=== PATIENT | female | born 1990 | race Caucasian/White ===

== ENCOUNTER 2022-04-20 22:04 | Emergency (ER) | payer OTHER ==
[2022-04-20 22:23] VITALS: BP 123/77
[2022-04-21] MEDS ORDERED: ONDANSETRON 4 MG/2 ML VIAL IVP STA (06:39)
[2022-04-21] MEDS ORDERED: SODIUM CHLORIDE 0.9% 1,000 ML IV STA (06:39)
[2022-04-21] MEDS ORDERED: KETOROLAC 15 MG/ML 1 ML VIAL IVP STA (06:40)
--- NOTE | 2022-04-21 06:55 | ED ---
Fever HPI - General Chief Complaint: Fever Stated Complaint: cough Time Seen by Provider: 04/21/22 06:39 Source: patient, RN notes reviewed Mode of arrival: ambulatory - History of Present Illness Initial Comments: This is a 31-year-old female who presents to the emergency department for coughing, congestion, fevers, and vomiting. States that 4 days ago she tested positive for influenza A. Since then, most of her problems have been related to coughing and vomiting. States that she's been unable to keep anything down, which has been a problem for the fevers in particular, because she cannot keep down ibuprofen or Tylenol. She presents with her son today who has similar symptoms. Denies any difficulty breathing. Denies any chest pain, palpitations, abdominal pain, diarrhea, back pain, or headaches. MD Complaint: fever, other (cough, nausea, vomiting) Onset/Timin -: days(s) Context: sick contacts Treatments Prior to Arrival: none - Related Data Previous Rx's Medication Instructions Recorded HYDROcodone/APAP 5-325MG [[place] 1 tab PO Q6HR PRN #20 tab 10/15/15 5-325] HYDROcodone/APAP 5-325MG [[place] 1 each PO Q4HR PRN #20 tab 11/13/15 5-325] Ibuprofen [Motrin] 600 mg PO Q8HR PRN #30 tab 11/13/15 Albuterol Sulfate [Albuterol 1 puff PO Q4-6H PRN #8.5 gm 04/21/22 Sulfate Hfa] Ondansetron Odt [Zofran Odt] 4 mg PO Q8HR PRN #10 tab 04/21/22 Promethazine/Dextromethorphan 5 ml PO Q4-6H PRN #473 ml 04/21/22 [Promethazine-Dm Syrup] Allergies Allergy/AdvReac Type Severity Reaction Status Date / Time cyclobenzaprine HCl Allergy Nausea & Verified 04/20/22 22:23 [From Flexeril] Vomiting Review of Systems ROS Statement: Those systems with pertinent positive or pertinent negative responses have been documented in the HPI. ROS Other: All systems not noted in ROS Statement are negative. Past Medical History Past Medical History: Asthma History of Any Multi-Drug Resistant Organisms: None Reported Past Surgical History: Section, Cholecystectomy Past Anesthesia/Blood Transfusion Reactions: No Reported Reaction Past Psychological History: No Psychological Hx Reported Past Alcohol Use History: None Reported Past Drug Use History: None Reported General Exam General appearance: alert, in no apparent distress Head exam: Present: atraumatic, normocephalic, normal inspection Respiratory exam: Present: normal lung sounds bilaterally. Absent: respiratory distress, wheezes, rales, rhonchi, stridor Cardiovascular Exam: Present: regular rate, normal rhythm, normal heart sounds. Absent: systolic murmur, diastolic murmur, rubs, gallop, clicks GI/Abdominal exam: Present: soft, normal bowel sounds. Absent: distended, tenderness, guarding, rebound, rigid Neurological exam: Present: alert, oriented X3, CN II-XII intact Psychiatric exam: Present: normal affect, normal mood Skin exam: Present: warm, dry, intact, normal color. Absent: rash Course Vital Signs 04/20/22 04/21/22 04/21/22 22:21 07:29 07:32 Temperature 102.9 F H 99.6 F Pulse Rate 120 H 94 Respiratory 18 20 Rate Blood Pressure 123/77 O2 Sat by Pulse 96 94 L Oximetry 04/21/22 08:26 Temperature 99.6 F Pulse Rate 94 Respiratory 20 Rate Blood Pressure 123/77 O2 Sat by Pulse 94 L Oximetry Medical Decision Making - Medical Decision Making This is a 31-year-old female who presents to the emergency department for coughing, nausea, and vomiting. Was pt. sent in by a medical professional or institution? @ -No Did you speak to anyone other than the patient for history? @ -No Did you review nursing and triage notes? @ -Agree, accurate with regards to the patient's symptoms. Were old charts reviewed? @ -No Differential Diagnosis? @ -Differential Fever: Pneumonia, viral URI, endocarditis, myocarditis, pericarditis, otitis, sinusitis, peritonsillar Abscess, retropharyngeal Abscess, epiglottitis, peritonitis, appendicitis, [place] cystitis, diverticulitis, hepatitis, colitis, UTI, PID, TOA, pyelonephritis, prostatitis, epididymitis, meningitis, encephalitis, pulmonary embolism, CVA, thyroid storm, pancreatitis, adrenal crisis, cavernous sinus thrombosis, this is not meant to be an all-inclusive list. What testing was considered but not performed? (CT, X-rays, U/S, labs)? Why? @ -None What meds were considered but not given? Why? @ -None Did you discuss the management of the patient with other professionals? @ -No Did you reconcile home meds? @ -No Was smoking cessation discussed for >3mins.? @ -No Was critical care preformed (if so, how long)? @ -No Were there social determinants of health that impacted care today? How? (Homelessness, low income, unemployed, alcoholism, drug addiction, transportation, low edu. Level, literacy, decrease access to med. care, [facility], rehab)? @ -No Was there de-escalation of care discussed even if they declined? (Discuss DNR or withdrawal of care, Hospice)? @ -No What co-morbidities impacted this encounter? (DM, HTN, Smoking, COPD, CAD, Cancer, CVA, Hep., AIDS, mental health diagnosis, sleep apnea, morbid obesity)? @ -Asthma, morbid obesity Was patient admitted / discharged? @ -Discharged. Patient given IV fluids, Toradol, and Zofran. States that she felt much better after fluid and medication administration. The Toradol did successfully reduce her fever. She was also given a dose of Decadron. Prescriptions for promethazine DM cough syrup, albuterol inhaler, and Zofran provided with dosing instructions reviewed. She is instructed to remain well- hydrated, slowly advance her diet as tolerated, and get plenty of rest. Drug Therapy requiring intensive monitoring for toxicity (Heparin, Nitro, Insulin, Cardizem)? @ -None Were any procedures done? @ -None Diagnosis/symptom? @ -Influenza A Acute, or Chronic, or Acute on Chronic? @ -Acute Uncomplicated (without systemic symptoms) or Complicated (systemic symptoms)? @ -Complicated in that she is having associated nausea and vomiting. Side effects of treatment? @ -Adverse reaction to medications prescribed Exacerbation, Progression, or Severe Exacerbation] @ -Not applicable Poses a threat to life or bodily function? @ -May impact her function if she continues to feel sick. Diagnosis/symptom? @ -Nausea and vomiting Acute, or Chronic, or Acute on Chronic? @ -Acute Uncomplicated (without systemic symptoms) or Complicated (systemic symptoms)? @ -Uncomplicated Side effects of treatment? @ -Adverse reaction to Zofran Exacerbation, Progression, or Severe Exacerbation] @ -Not applicable Poses a threat to life or bodily function? @ -May impact bodily function if she continues to throw up. Return precautions reviewed in depth, the patient is instructed to return to the emergency department with any new, worsening, or concerning symptoms. Patient verbalized understanding. This case was discussed in detail with the attending ED physician. Presentation, findings, and treatment plan discussed in detail as well. Disposition Clinical Impression: Influenza A Disposition: HOME SELF-CARE Instructions (If sedation given, give patient instructions): Influenza (ED) Additional Instructions: Return to the emergency department with any new, worsening, or concerning symptoms. The cough medicine can be used every 4-6 hours as needed. This may make you sleepy and you should avoid taking it before driving. You can use the albuterol inhaler every 4-6 hours as needed for any coughing or difficulty breathing. The zofran can be used every 8 hours as needed if you develop any nausea. Follow up with your primary care provider in 1-2 days. Prescriptions: Albuterol Sulfate [Albuterol Sulfate Hfa] 1 puff PO Q4-6H PRN #8.5 gm PRN Reason: Shortness Of Breath Promethazine/Dextromethorphan [Promethazine-Dm Syrup] 5 ml PO Q4-6H PRN #473 ml PRN Reason: Cough Ondansetron Odt [Zofran Odt] 4 mg PO Q8HR PRN #10 tab PRN Reason: Nausea And Vomiting Is patient prescribed a controlled substance at d/c from ED?: No Referrals: Destiny Lopez DO [Primary Care Provider] - 1-2 days
[2022-04-21 07:30] VITALS: PULSE 94; RESP 20
[2022-04-21 07:32] VITALS: TEMP 99.6
[2022-04-21] MEDS ORDERED: DEXAMETHASONE SOD PHOSPHATE 10 MG/ML 1 ML VIAL IVP STA (08:07)
== END 2022-04-21 08:28 | disposition home or self-care (01) ==
LOC: EC 22:04
DX: J10.1 Influenza due to other identified influenza virus with other respiratory manifestations (principal); J45.909 Unspecified asthma, uncomplicated; Z79.899 Other long term (current) drug therapy; Z88.8 Allergy status to other drugs, medicaments and biological substances
CPT/HCPCS: 99283; 96374; 96375 ×2; 96361; J1100; J2405; J1885

== ENCOUNTER 2022-09-19 07:00 | Emergency (ER) | payer OTHER ==
[2022-09-19] MEDS ORDERED: IBUPROFEN 600 MG TAB PO STA (07:36)
[2022-09-19] MEDS ORDERED: ONDANSETRON ODT 4 MG TAB PO STA (07:37)
--- NOTE | 2022-09-19 07:41 | ED ---
General Adult HPI - General Chief complaint: Nausea/Vomiting/Diarrhea Stated complaint: sore throat Time Seen by Provider: 09/19/22 07:25 Source: patient, RN notes reviewed Mode of arrival: ambulatory Limitations: no limitations - History of Present Illness Initial comments: Nontoxic-appearing 31-year-old female presents ambulatory complaining of nausea and sore throat. Patient states she also has a sinus headache for the past 2 days, concerned for sinus infection. Denies any fevers. She denies any cough. No abdominal pain. States that she was exposed to coronavirus wishes to be tested. Patient states that she was treated along with her children for strep throat last month and finished course of amoxicillin. Patient also having her 2 children seen today for cough and congestion. Medical history of asthma. Denies chance of . -: days(s) (2) Location: head (Sinus), neck (Sore throat) Severity scale (1-10): 0 Quality: constant Consistency: constant Improves with: none Worsens with: none Associated Symptoms: headaches, nausea/vomiting, other (Sore throat) Treatments Prior to Arrival: none - Related Data Previous Rx's Medication Instructions Recorded HYDROcodone/APAP 5-325MG [[place] 1 tab PO Q6HR PRN #20 tab 10/15/15 5-325] HYDROcodone/APAP 5-325MG [[place] 1 each PO Q4HR PRN #20 tab 11/13/15 5-325] Ibuprofen [Motrin] 600 mg PO Q8HR PRN #30 tab 11/13/15 Albuterol Sulfate [Albuterol 1 puff PO Q4-6H PRN #8.5 gm 04/21/22 Sulfate Hfa] Ondansetron Odt [Zofran Odt] 4 mg PO Q8HR PRN #10 tab 04/21/22 Promethazine/Dextromethorphan 5 ml PO Q4-6H PRN #473 ml 04/21/22 [Promethazine-Dm Syrup] Allergies Allergy/AdvReac Type Severity Reaction Status Date / Time cyclobenzaprine HCl Allergy Nausea & Verified 09/19/22 07:10 [From Flexeril] Vomiting Patient : No Review of Systems ROS Statement: Those systems with pertinent positive or pertinent negative responses have been documented in the HPI. ROS Other: All systems not noted in ROS Statement are negative. Past Medical History Past Medical History: Asthma History of Any Multi-Drug Resistant Organisms: None Reported Past Surgical History: Section, Cholecystectomy Past Anesthesia/Blood Transfusion Reactions: No Reported Reaction Past Psychological History: No Psychological Hx Reported Smoking Status: Never smoker Past Alcohol Use History: None Reported Past Drug Use History: None Reported General Exam Limitations: no limitations General appearance: alert, in no apparent distress Head exam: Present: atraumatic Eye exam: Present: normal appearance. Absent: scleral icterus, conjunctival injection, periorbital swelling ENT exam: Present: mucous membranes moist Neck exam: Present: full ROM. Absent: tenderness, meningismus Respiratory exam: Present: normal lung sounds bilaterally. Absent: respiratory distress, accessory muscle use Cardiovascular Exam: Present: regular rate GI/Abdominal exam: Present: soft Extremities exam: Present: normal capillary refill Neurological exam: Present: alert, oriented X3, normal gait Psychiatric exam: Present: normal affect, normal mood Skin exam: Present: warm, dry, normal color. Absent: cyanosis, diaphoretic, petechiae, pallor Course Vital Signs 09/19/22 09/19/22 07:08 08:52 Temperature 97.9 F 98.1 F Pulse Rate 78 92 Respiratory 18 20 Rate Blood Pressure 136/83 125/82 O2 Sat by Pulse 99 94 L Oximetry - Reevaluation(s) Reevaluation #1: 09/19/22 08:21 Nausea resolved with Zofran. Time: 08:15 Medical Decision Making - Medical Decision Making Was pt. sent in by a medical professional or institution (, PA, SERVICE CENTER REPRESENTATIVE, urgent care, hospital, or skilled nursing...) When possible be specific @ -No Did you speak to anyone other than the patient for history (EMS, parent, family, police, friend...)? What history was obtained from this source @ -No Did you review nursing and triage notes (agree or disagree)? Why? @ -I reviewed and agree with nursing and triage notes Were old charts reviewed (outside hosp., previous admission, EMS record, old EKG, old radiological studies, urgent care reports/EKG's, skilled nursing records)? Report findings @ -No old charts were reviewed Differential Diagnosis (chest pain, altered mental status, abdominal pain women, abdominal pain men, vaginal bleeding, weakness, fever, dyspnea, syncope, headache, dizziness, GI bleed, back pain, seizure, CVA, palpatations, mental health, musculoskeletal)? @ -Sinusitis, URI, migraine EKG interpreted by me (3pts min.). @ -n/a X-rays interpreted by me (1pt min.). @ -None done CT interpreted by me (1pt min.). @ -None done U/S interpreted by me (1pt. min.). @ -None done What testing was considered but not performed or refused? (CT, X-rays, U/S, labs)? Why? @ -None What meds were considered but not given or refused? Why? @ -None Did you discuss the management of the patient with other professionals (professionals i.e. , PA, SERVICE CENTER REPRESENTATIVE, lab, RT, psych nurse, child protective services social worker, kiln car repairer, teacher, ambulance officer, bilingual case manager)? Give summary @ -No Was smoking cessation discussed for >3mins.? @ -No Was critical care preformed (if so, how long)? @ -No Were there social determinants of health that impacted care today? How? (Homelessness, low income, unemployed, alcoholism, drug addiction, transportation, low edu. Level, literacy, decrease access to med. care, half-way, rehab)? @ -No Was there de-escalation of care discussed even if they declined (Discuss DNR or withdrawal of care, Hospice)? DNR status @ -No What co-morbidities impacted this encounter? (DM, HTN, Smoking, COPD, CAD, Cancer, CVA, ARF, Chemo, Hep., AIDS, mental health diagnosis, sleep apnea, morbid obesity)? @ -Asthma, obesity Was patient admitted / discharged? Hospital course, mention meds given and route, prescriptions, significant lab abnormalities, going to OR and other pertinent info. @ -Discharged. Nontoxic-appearing 31-year-old female presents ambulatory with her 2 children all complaining of nausea and sore throat. Mom states she also has a sinus headache for the past 2 days. Denies any fevers. She denies any cough. States that she was exposed to coronavirus wishes to be tested. Medical history of asthma. Physical exam lungs sounds clear to auscultation. Patient has no cough. No chest pain or difficulty in breathing. Abdomen is soft. Vital signs are stable and she is afebrile. Patient concerned for exposure to coronavirus, coronavirus testing is negative. This is likely a upper respiratory viral infection as patient and her 2 children have similar symptoms. She denies any fevers. Directed to use decongestant [id number] for her sinus pressure and Tylenol Motrin for pain. Follow-up with the primary care doctor next week. She is agreeable to this plan of care. Case discussed with Dr. Rolle Undiagnosed new problem with uncertain prognosis? @ -No Drug Therapy requiring intensive monitoring for toxicity (Heparin, Nitro, Insulin, Cardizem)? @ -No Were any procedures done? @ -No Diagnosis/symptom? @ -Upper respiratory infection Acute, or Chronic, or Acute on Chronic? @ -Acute Uncomplicated (without systemic symptoms) or Complicated (systemic symptoms)? @ -Uncomplicated Side effects of treatment? @ -No Exacerbation, Progression, or Severe Exacerbation? @ -No Poses a threat to life or bodily function? How? (Chest pain, [place], [place], pneumonia, PE, COPD, DKA, ARF, appy, cholecystitis, CVA, Diverticulitis, Homicidal, Suicidal, threat to staff... and all critical care pts) @ -No - Lab Data Lab Results 09/19/22 Range/Units 07:37 Coronavirus (PCR) Not Detected (Not Detectd) Disposition Clinical Impression: URI (upper respiratory infection) Disposition: HOME SELF-CARE Condition: Good Instructions (If sedation given, give patient instructions): Upper Respiratory Infection (ED) Additional Instructions: You can take Tylenol and/or Motrin as needed for any pain or discomfort. Use [id number] decongestants for your sinus pressure and congestion. Benadryl is a decongestant and will also relieve nausea. Follow-up with the primary care doctor next week. Return to the emergency room with any new or concerning symptoms. Is patient prescribed a controlled substance at d/c from ED?: No Referrals: Destiny Lopez DO [Primary Care Provider] - 1-2 days Time of Disposition: 08:13
[2022-09-19] MEDS ORDERED: ONDANSETRON 4 MG ODT STARTER PACK 2 TAB BTL PO STA (08:37)
[2022-09-19 08:53] VITALS: BP 125/82; PULSE 92; RESP 20; TEMP 98.1
== END 2022-09-19 08:53 | disposition home or self-care (01) ==
LOC: EC 07:00
DX: J06.9 Acute upper respiratory infection, unspecified (principal); J45.909 Unspecified asthma, uncomplicated; Z88.8 Allergy status to other drugs, medicaments and biological substances; Z20.822 Contact with and (suspected) exposure to COVID-19
CPT/HCPCS: 87635; 99284

== ENCOUNTER 2023-02-25 08:37 | Emergency (ER) | payer OTHER ==
--- NOTE | 2023-02-25 09:12 | ED ---
General Adult HPI - General Chief complaint: Upper Respiratory Infection Stated complaint: Cough Time Seen by Provider: 02/25/23 08:37 Source: patient, RN notes reviewed, old records reviewed Mode of arrival: ambulatory Limitations: no limitations - History of Present Illness Initial comments: Patient is a 32-year-old female presents emergency Department complaining of upper respiratory infection. Patient has had a cough for 1 week and is not getting any better. His remote history of asthma but not currently therapy for asthma. No fevers. Similar complaints in her children. No nausea or vomiting or diarrhea. Endorses rhinorrhea. Denies sore throat. Presents for further evaluation of this time. Was seen at another ER urgent care and no testing was done and was diagnosed with bronchitis earlier this week. Presents for further evaluation. - Related Data Previous Rx's Medication Instructions Recorded HYDROcodone/APAP 5-325MG [[place] 1 tab PO Q6HR PRN #20 tab 10/15/15 5-325] HYDROcodone/APAP 5-325MG [[place] 1 each PO Q4HR PRN #20 tab 11/13/15 5-325] Ibuprofen [Motrin] 600 mg PO Q8HR PRN #30 tab 11/13/15 Albuterol Sulfate [Albuterol 1 puff PO Q4-6H PRN #8.5 gm 04/21/22 Sulfate Hfa] Ondansetron Odt [Zofran Odt] 4 mg PO Q8HR PRN #10 tab 04/21/22 Promethazine/Dextromethorphan 5 ml PO Q4-6H PRN #473 ml 04/21/22 [Promethazine-Dm Syrup] Azithromycin [Zithromax] 250 mg PO DAILY 4 Days #4 tab 02/25/23 Allergies Allergy/AdvReac Type Severity Reaction Status Date / Time cyclobenzaprine HCl Allergy Nausea & Verified 02/25/23 08:40 [From Flexeril] Vomiting Review of Systems ROS Statement: Those systems with pertinent positive or pertinent negative responses have been documented in the HPI. Review of Systems: CONST: Denies fever EYES: Denies blurry vision ENT: Endorses nasal congestion C/V: Denies Chest pain RESP: Denies shortness of breath GI: Denies abdominal pain : Denies dysuria SKIN: Denies rash. MSK: Denies joint pain. NEURO: Denies headache ROS Other: All systems not noted in ROS Statement are negative. Past Medical History Past Medical History: Asthma History of Any Multi-Drug Resistant Organisms: None Reported Past Surgical History: Section, Cholecystectomy Past Anesthesia/Blood Transfusion Reactions: No Reported Reaction Past Psychological History: No Psychological Hx Reported Smoking Status: Never smoker Past Alcohol Use History: None Reported Past Drug Use History: None Reported General Exam - General Exam Comments Initial Comments: General: Appears in no acute distress. HEAD: Normal with no signs of head trauma. EYES: PERRLA, EOMI, conjunctiva normal, no discharge. ENT: Hearing grossly intact, normal oropharynx. RESPIRATORY: Clear breath sounds bilaterally. Mild central coarse breath sounds C/V: Regular rate and rhythm. S1 and S2 auscultated, peripheral pulses 2+ and intact throughout ABD: Abd is soft, nontender, nondistended EXT: no obvious deformity SKIN: No rashes or lesions observed on exposed skin. NEURO: Alert and oriented x 4. Limitations: no limitations Course Vital Signs 02/25/23 02/25/23 02/25/23 08:39 09:32 11:07 Temperature 98.2 F 98.1 F Pulse Rate 90 88 Respiratory 20 18 18 Rate Blood Pressure 144/89 132/79 O2 Sat by Pulse 99 99 Oximetry Medical Decision Making - Medical Decision Making Was pt. sent in by a medical professional or institution (ISABELLA Murry, TRACK MAINTAINER, urgent care, hospital, or long-term...) When possible be specific @ -No Did you speak to anyone other than the patient for history (EMS, parent, family, police, friend...)? What history was obtained from this source @ -No Did you review nursing and triage notes (agree or disagree)? Why? @ -I reviewed and agree with nursing and triage notes Were old charts reviewed (outside hosp., previous admission, EMS record, old EKG, old radiological studies, urgent care reports/EKG's, long-term records)? Report findings @ -No old charts were reviewed Differential Diagnosis (chest pain, altered mental status, abdominal pain women, abdominal pain men, vaginal bleeding, weakness, fever, dyspnea, syncope, headache, dizziness, GI bleed, back pain, seizure, CVA, palpatations, mental health, musculoskeletal)? @ -Bronchitis, pneumonia, viral infection, flu, Covid infection. This list is not all-inclusive. EKG interpreted by me (3pts min.). @ -None done X-rays interpreted by me (1pt min.). @ -Chest x-ray reveals no obvious acute cardiopulmonary process. CT interpreted by me (1pt min.). @ -None done U/S interpreted by me (1pt. min.). @ -None done What testing was considered but not performed or refused? (CT, X-rays, U/S, labs)? Why? @ -None What meds were considered but not given or refused? Why? @ -None Did you discuss the management of the patient with other professionals (professionals i.e. , PA, TRACK MAINTAINER, lab, RT, psych nurse, social media editor, credit analysis manager, teacher, debt recovery officer, welfare case worker)? Give summary @ -No Was smoking cessation discussed for >3mins.? @ -No Was critical care preformed (if so, how long)? @ -No Were there social determinants of health that impacted care today? How? (Homelessness, low income, unemployed, alcoholism, drug addiction, transportation, low edu. Level, literacy, decrease access to med. care, custodial, rehab)? @ -No Was there de-escalation of care discussed even if they declined (Discuss DNR or withdrawal of care, Hospice)? DNR status @ -No What co-morbidities impacted this encounter? (DM, HTN, Smoking, COPD, CAD, Cancer, CVA, ARF, Chemo, Hep., AIDS, mental health diagnosis, sleep apnea, morbid obesity)? @ -None Was patient admitted / discharged? Hospital course, mention meds given and route, prescriptions, significant lab abnormalities, going to OR and other pertinent info. @ -Based on the patient's presentation and physical exam, I'm concerned for upper respiratory infection for the patient. We will obtain chest x-ray and viral swabs. Vital signs within acceptable limits. Patient was in agreement this plan. Chest x-ray is unremarkable. Viral swabs negative. Discuss results with the patient. She expressed understanding. Discussed antibiotics and she did ask for them. We will provide her with a Z-Evangelist. She will also receive a dose of Decadron. She was in agreement this plan. Strict return precautions discussed. I will provide the patient with a prescription for azithromycin. I instructed the patient to follow up with their PCP in the next 1-3 days. I explained that the patient should return to the emergency department if they experience any worsening symptoms. Strict return precautions were discussed with the patient. The patient expressed understanding of these instructions. I answered all questions that the patient had. The patient was discharged home in good condition with their prescriptions and follow up information. Undiagnosed new problem with uncertain prognosis? @ -No Drug Therapy requiring intensive monitoring for toxicity (Heparin, Nitro, Insulin, Cardizem)? @ -No Were any procedures done? @ -No Diagnosis/symptom? @ -TracheoBronchitis, URI Acute, or Chronic, or Acute on Chronic? @ -Acute Uncomplicated (without systemic symptoms) or Complicated (systemic symptoms)? @ -Uncomplicated Side effects of treatment? @ -none Exacerbation, Progression, or Severe Exacerbation] @ -no Poses a threat to life or bodily function? @ -no - Lab Data Lab Results 02/25/23 Range/Units 09:18 Influenza Type A (PCR) Not Detected (Not Detectd) Influenza Type B (PCR) Not Detected (Not Detectd) RSV (PCR) Not Detected (Not Detectd) SARS-CoV-2 (PCR) Not Detected (Not Detectd) Disposition Clinical Impression: Tracheobronchitis, Upper respiratory tract infection Disposition: HOME SELF-CARE Condition: Good Instructions (If sedation given, give patient instructions): Upper Respiratory Infection (ED) Prescriptions: Azithromycin [Zithromax] 250 mg PO DAILY 4 Days #4 tab Is patient prescribed a controlled substance at d/c from ED?: No Referrals: Destiny Lopez DO [Primary Care Provider] - 1-2 days Time of Disposition: 10:20
--- NOTE | 2023-02-25 09:41 | XR ---
EXAMINATION TYPE: XR chest 2V DATE OF EXAM: 02/25/2023 COMPARISON: None HISTORY: 32-year-old female with cough TECHNIQUE: PA and lateral views FINDINGS: Heart normal size. Aorta and pulmonary vasculature within normal limits. No consolidation or pleural effusion. Large patient body habitus. IMPRESSION: No acute cardiopulmonary process.
[2023-02-25 10:15] VITALS: RESP 18
[2023-02-25] MEDS ORDERED: AZITHROMYCIN 500 MG TAB PO STA (10:40)
[2023-02-25] MEDS ORDERED: dexAMETHasone 4 MG TAB PO STA (10:41)
[2023-02-25 11:27] VITALS: BP 132/79; PULSE 88; TEMP 98.1
== END 2023-02-25 11:09 | disposition home or self-care (01) ==
LOC: EC 08:37
DX: J40 Bronchitis, not specified as acute or chronic (principal); J06.9 Acute upper respiratory infection, unspecified; Z88.8 Allergy status to other drugs, medicaments and biological substances; Z20.822 Contact with and (suspected) exposure to COVID-19; Z90.49 Acquired absence of other specified parts of digestive tract
CPT/HCPCS: 87636; 71046; 99283; J8540

== ENCOUNTER 2023-07-08 22:09 | Emergency (ER) | payer OTHER ==
[2023-07-08 22:14] VITALS: BP 178/109; PULSE 108; RESP 18; TEMP 98
--- NOTE | 2023-07-08 22:23 | ED ---
ENT HPI - General Chief complaint: Dental/Oral Stated complaint: Toothache Time Seen by Provider: 07/08/23 22:13 Source: patient Mode of arrival: ambulatory Limitations: no limitations - History of Present Illness Initial comments: 32-year-old female presenting with chief complaint of left-sided dental pain. Pain started today. This is over a tooth to the left upper side that has a known cavity. Patient has a dentist, states that she needs to make an appointment. She was just started on new medication for anxiety and was not sure if she can take Motrin or Tylenol with this medication. She is having no difficulty breathing or swallowing. No trismus. No drooling. No muffled voice. No fevers or neck pain. - Related Data Previous Rx's Medication Instructions Recorded HYDROcodone/APAP 5-325MG [[place] 1 tab PO Q6HR PRN #20 tab 10/15/15 5-325] HYDROcodone/APAP 5-325MG [[place] 1 each PO Q4HR PRN #20 tab 11/13/15 5-325] Ibuprofen [Motrin] 600 mg PO Q8HR PRN #30 tab 11/13/15 Albuterol Sulfate [Albuterol 1 puff PO Q4-6H PRN #8.5 gm 04/21/22 Sulfate Hfa] Ondansetron Odt [Zofran Odt] 4 mg PO Q8HR PRN #10 tab 04/21/22 Promethazine/Dextromethorphan 5 ml PO Q4-6H PRN #473 ml 04/21/22 [Promethazine-Dm Syrup] Azithromycin [Zithromax] 250 mg PO DAILY 4 Days #4 tab 02/25/23 Amoxic-Pot Clav 875-125Mg 1 tab PO Q12HR 7 Days #14 tab 07/08/23 [Augmentin 875-125] Allergies Allergy/AdvReac Type Severity Reaction Status Date / Time cyclobenzaprine HCl Allergy Nausea & Verified 07/08/23 22:12 [From Flexeril] Vomiting Review of Systems ROS Statement: Those systems with pertinent positive or pertinent negative responses have been documented in the HPI. ROS Other: All systems not noted in ROS Statement are negative. Past Medical History Past Medical History: Asthma History of Any Multi-Drug Resistant Organisms: None Reported Past Surgical History: Section, Cholecystectomy Past Anesthesia/Blood Transfusion Reactions: No Reported Reaction Past Psychological History: Anxiety Smoking Status: Never smoker Past Alcohol Use History: None Reported Past Drug Use History: None Reported General Exam Limitations: no limitations General appearance: alert, in no apparent distress Head exam: Present: atraumatic, normocephalic Eye exam: Present: normal appearance Expanded Mouth exam: Present: normal external inspection, tongue normal. Absent: drooling, trismus, muffled voice Teeth exam: Present: dental caries, dental tenderness #. Absent: gingival enlargement Throat exam: normal inspection Neck exam: Present: normal inspection Respiratory exam: Absent: respiratory distress Neurological exam: Present: alert, oriented X3 Psychiatric exam: Present: normal affect, normal mood Skin exam: Present: warm, dry Course Vital Signs 07/08/23 22:10 Temperature 98 F Pulse Rate 108 H Respiratory 18 Rate Blood Pressure 178/109 O2 Sat by Pulse 98 Oximetry Medical Decision Making - Medical Decision Making Was pt. sent in by a medical professional or institution (, PA, BUILD MANAGER, urgent care, hospital, or intermediate...) When possible be specific @ -No Did you speak to anyone other than the patient for history (EMS, parent, family, police, friend...)? What history was obtained from this source @ -No Did you review nursing and triage notes (agree or disagree)? Why? @ -I reviewed and agree with nursing and triage notes Were old charts reviewed (outside hosp., previous admission, EMS record, old EKG, old radiological studies, urgent care reports/EKG's, intermediate records)? Report findings @ -No old charts were reviewed Differential Diagnosis (chest pain, altered mental status, abdominal pain women, abdominal pain men, vaginal bleeding, weakness, fever, dyspnea, syncope, headache, dizziness, GI bleed, back pain, seizure, CVA, palpatations, mental health, musculoskeletal)? @ -Differential includes toothache, dental abscess, Aguila's angina, this is not an all-inclusive list EKG interpreted by me (3pts min.). @ -As above X-rays interpreted by me (1pt min.). @ -None done CT interpreted by me (1pt min.). @ -None done U/S interpreted by me (1pt. min.). @ -None done What testing was considered but not performed or refused? (CT, X-rays, U/S, labs)? Why? @ -None What meds were considered but not given or refused? Why? @ -None Did you discuss the management of the patient with other professionals (professionals i.e. , PA, BUILD MANAGER, lab, RT, psych nurse, social services specialist, technology administrator, teacher, hospital chief executive officer, telephonic nurse case manager)? Give summary @ -No Was smoking cessation discussed for >3mins.? @ -No Was critical care preformed (if so, how long)? @ -No Were there social determinants of health that impacted care today? How? (Homelessness, low income, unemployed, alcoholism, drug addiction, t ransportation, low edu. Level, literacy, decrease access to med. care, group home, rehab)? @ -No Was there de-escalation of care discussed even if they declined (Discuss DNR or withdrawal of care, Hospice)? DNR status @ -No What co-morbidities impacted this encounter? (DM, HTN, Smoking, COPD, CAD, Cancer, CVA, ARF, Chemo, Hep., AIDS, mental health diagnosis, sleep apnea, morbid obesity)? @ -None Was patient admitted / discharged? Hospital course, mention meds given and route, prescriptions, significant lab abnormalities, going to OR and other pertinent info. @ -32-year-old female presenting with chief complaint of dental pain. Pain started suddenly today over a tooth with a known cavity to the left upper side. On physical exam there is no trismus or brawny induration. Normal posterior pha rynx. There is a noted dental carry. There is some swelling noted to the left upper jaw. No evidence of drainable abscess. She is started on Augmentin. Instructed to take Motrin and Tylenol as needed. Instructed to follow-up with dentist, provided with referral to community dental clinic. Discharged home. Follow-up with PCP. Report back to ER with any new or worsening symptoms. Discussed return parameters and answered all questions. Patient conveyed verbal understanding and agreed to the plan. I discussed this case in detail with my attending Dr. Rede Undiagnosed new problem with uncertain prognosis? @ -No Drug Therapy requiring intensive monitoring for toxicity (Heparin, Nitro, Insulin, Cardizem)? @ -No Were any procedures done? @ -No Diagnosis/symptom? @ -Dental abscess Acute, or Chronic, or Acute on Chronic? @ -Acute Uncomplicated (without systemic symptoms) or Complicated (systemic symptoms)? @ -Uncomplicated Side effects of treatment? @ -No Exacerbation, Progression, or Severe Exacerbation? @ -No Poses a threat to life or bodily function? How? (Chest pain, [place], [place], pneumonia, PE, COPD, DKA, ARF, appy, cholecystitis, CVA, Diverticulitis, Homicidal, Suicidal, threat to staff... and all critical care pts) @ -No Disposition Clinical Impression: Dental abscess Disposition: HOME SELF-CARE Condition: Good Instructions (If sedation given, give patient instructions): Dental Abscess (ED) Additional Instructions: Please follow up with the [facility] dental [facility]. [facility] [place] [address]. Phone number for new patients or [phone] for existing patients. Prescriptions: Amoxic-Pot Clav 875-125Mg [Augmentin 875-125] 1 tab PO Q12HR 7 Days #14 tab Is patient prescribed a controlled substance at d/c from ED?: No Referrals: Destiny Lopez DO [Primary Care Provider] - 1-2 days Time of Disposition: 22:21
[2023-07-08] MEDS: AMOXIC-POT CLAV 875MG STARTER PACK 2 TAB BTL PO STA (22:28)
[2023-07-08] MEDS: IBUPROFEN 600 MG TAB PO STA (22:28)
[2023-07-08] MEDS: ACETAMINOPHEN TAB 325 MG TAB PO STA (22:29)
== END 2023-07-08 22:33 | disposition home or self-care (01) ==
LOC: EC 22:09
DX: K04.7 Periapical abscess without sinus (principal); K02.9 Dental caries, unspecified; J45.909 Unspecified asthma, uncomplicated; Z88.8 Allergy status to other drugs, medicaments and biological substances; Z90.49 Acquired absence of other specified parts of digestive tract
CPT/HCPCS: 99283

== ENCOUNTER 2023-12-24 00:27 | Emergency (ER) | payer OTHER ==
--- NOTE | 2023-12-24 01:07 | ED ---
URI HPI - General Chief Complaint: Upper Respiratory Infection Stated Complaint: covid Time Seen by Provider: 12/24/23 00:43 Source: patient, RN notes reviewed Mode of arrival: ambulatory Limitations: no limitations - History of Present Illness Initial Comments: This is a 33-year-old female who presents to the emergency department for headaches, body aches, nausea, with vomiting. States that it started 2 days ago. She took an at home COVID test that was positive. Last took medication for her headache and fever 6 hours ago, states that the nausea is making it difficult for her to take additional medication. Denies any coughing, chest pain, or shortness of breath. - Related Data Previous Rx's Medication Instructions Recorded HYDROcodone/APAP 5-325MG [[place] 1 tab PO Q6HR PRN #20 tab 10/15/15 5-325] HYDROcodone/APAP 5-325MG [[place] 1 each PO Q4HR PRN #20 tab 11/13/15 5-325] Ibuprofen [Motrin] 600 mg PO Q8HR PRN #30 tab 11/13/15 Albuterol Sulfate [Albuterol 1 puff PO Q4-6H PRN #8.5 gm 04/21/22 Sulfate Hfa] Ondansetron Odt [Zofran Odt] 4 mg PO Q8HR PRN #10 tab 04/21/22 Promethazine/Dextromethorphan 5 ml PO Q4-6H PRN #473 ml 04/21/22 [Promethazine-Dm Syrup] Azithromycin [Zithromax] 250 mg PO DAILY 4 Days #4 tab 02/25/23 Amoxic-Pot Clav 875-125Mg 1 tab PO Q12HR 7 Days #14 tab 07/08/23 [Augmentin 875-125] Ketorolac [Toradol] 10 mg PO Q6HR PRN #15 tab 12/24/23 Nirmatrelvir/Ritonavir [Paxlovid 1 pack PO BID 5 Days #30 tab 12/24/23 300-100 mg Dose Pack] Ondansetron Odt [Zofran Odt] 4 mg PO Q8HR PRN #15 tab 12/24/23 Allergies Allergy/AdvReac Type Severity Reaction Status Date / Time cyclobenzaprine HCl Allergy Nausea & Verified 07/08/23 22:12 [From Flexeril] Vomiting Review of Systems ROS Statement: Those systems with pertinent positive or pertinent negative responses have been documented in the HPI. ROS Other: All systems not noted in ROS Statement are negative. Past Medical History Past Medical History: Asthma History of Any Multi-Drug Resistant Organisms: None Reported Past Surgical History: Section, Cholecystectomy Past Anesthesia/Blood Transfusion Reactions: No Reported Reaction Past Psychological History: Anxiety Smoking Status: Never smoker Past Alcohol Use History: None Reported Past Drug Use History: None Reported General Exam Limitations: no limitations General appearance: alert, in no apparent distress Head exam: Present: atraumatic, normocephalic, normal inspection Respiratory exam: Present: normal lung sounds bilaterally. Absent: respiratory distress, wheezes, rales, rhonchi, stridor Cardiovascular Exam: Present: regular rate, normal rhythm, normal heart sounds. Absent: systolic murmur, diastolic murmur, rubs, gallop, clicks Neurological exam: Present: alert, oriented X3, CN II-XII intact Psychiatric exam: Present: normal affect, normal mood Skin exam: Present: warm, dry, intact, normal color. Absent: rash Course Vital Signs 12/24/23 12/24/23 00:29 01:36 Temperature 100 F H 99.2 F Pulse Rate 112 H 76 Respiratory 16 20 Rate Blood Pressure 135/82 128/76 O2 Sat by Pulse 98 95 Oximetry Medical Decision Making - Medical Decision Making This is a 33 year old female who presents to the emergency department for headaches, body aches, and nausea from COVID. Was pt. sent in by a medical professional or institution? @ -No Did you speak to anyone other than the patient for history? @ -No Did you review nursing and triage notes? @ -Yes, and I agree, it is accurate with regards to the patient's symptoms. Were old charts reviewed? @ -No Differential Diagnosis? @ -Differential Headache: Migraine, tension, cluster, carbon monoxide, central venous thrombosis, pension karma temporal arteritis, acute closure glaucoma, intercranial hemorrhage, mastoiditis, sinusitis, head injury, this is not meant to be an all-inclusive list. EKG interpreted by me (3pts min.)? @ -Not obtained X-rays interpreted by me (1pt min.)? @ -Not obtained CT interpreted by me (1pt min.)? @ -Not obtained U/S interpreted by me (1pt. min.)? @ -Not obtained What testing was considered but not performed? (CT, X-rays, U/S, labs)? Why? @ -None What meds were considered but not given? Why? @ -None Did you discuss the management of the patient with other professionals? @ -No Did you reconcile home meds? @ -No Was smoking cessation discussed for >3mins.? @ -No Was critical care preformed (if so, how long)? @ -No Were there social determinants of health that impacted care today? How? (Homelessness, low income, unemployed, alcoholism, drug addiction, transportation, low edu. Level, literacy, decrease access to med. care, alf, rehab)? @ -No Was there de-escalation of care discussed even if they declined? (Discuss DNR or withdrawal of care, Hospice)? @ -No What co-morbidities impacted this encounter? (DM, HTN, Smoking, COPD, CAD, Cancer, CVA, Hep., AIDS, mental health diagnosis, sleep apnea, morbid obesity)? @ -Asthma Was patient admitted / discharged? @ -Discharged. Toradol and Zofran administered in the emergency department. Discussed the option of Paxlovid with the patient and she requested to proceed. This was prescribed as well as Toradol and Zofran for further symptomatic management. Advised getting plenty of rest and drinking plenty of fluids. Patient discharged home in stable condition. Case discussed with ED attending Dr. Jimenez. Return precautions reviewed in depth, the patient is instructed to return to the emergency department with any new, worsening, or concerning symptoms. Patient verbalized understanding. Undiagnosed new problem with uncertain prognosis? @ -None Drug Therapy requiring intensive monitoring for toxicity (Heparin, Nitro, Insulin, Cardizem)? @ -None Were any procedures done? @ -None Diagnosis/symptom? @ -COVID-19 Acute, or Chronic, or Acute on Chronic? @ -Acute Uncomplicated (without systemic symptoms) or Complicated (systemic symptoms)? @ -Uncomplicated Side effects of treatment? @ -None Exacerbation, Progression, or Severe Exacerbation] @ -Not applicable Poses a threat to life or bodily function? @ -No Disposition Clinical Impression: COVID-19 Disposition: HOME SELF-CARE Instructions (If sedation given, give patient instructions): COVID-19 (Coronavirus Disease 2019) (ED), How to Recover from COVID-19 at Home (ED) Additional Instructions: Return to the emergency department with any new, worsening, or concerning symptoms. Take the Paxlovid as prescribed for 5 days. Take the Toradol with Tylenol as needed for fevers and pain relief. If you choose to take the Toradol, do not take any other anti-inflammatories such as ibuprofen, take one or the other. You can take the Zofran up to every 8 hours as needed for nausea and vomiting. Make sure you get plenty of rest and remain well-hydrated. Prescriptions: Nirmatrelvir/Ritonavir [Paxlovid 300-100 mg Dose Pack] 1 pack PO BID 5 Days #30 tab Ketorolac [Toradol] 10 mg PO Q6HR PRN #15 tab PRN Reason: Pain Ondansetron Odt [Zofran Odt] 4 mg PO Q8HR PRN #15 tab PRN Reason: Nausea And Vomiting Is patient prescribed a controlled substance at d/c from ED?: No Referrals: Destiny Lopez DO [Primary Care Provider] - 1-2 days
[2023-12-24] MEDS: ACET/COD 300 MG/30 MG STARTER PACK 6 TAB BTL PO STA (01:13)
[2023-12-24] MEDS: ONDANSETRON 4 MG ODT STARTER PACK 2 TAB BTL PO STA (01:13)
[2023-12-24] MEDS: ONDANSETRON 4 MG/2 ML VIAL IM STA (01:14)
[2023-12-24] MEDS: KETOROLAC 15 MG/ML 1 ML VIAL IM STA (01:14)
[2023-12-24 01:46] VITALS: BP 128/76; PULSE 76; RESP 20; TEMP 99.2
== END 2023-12-24 02:41 | disposition home or self-care (01) ==
LOC: EC 00:27
DX: U07.1 COVID-19
CPT/HCPCS: 96372; 99283